=== PATIENT | female | born 1955 | race Caucasian/White ===

== ENCOUNTER 2017-07-09 18:54 | Emergency (ER) | payer BC ==
[2017-07-09 19:13] VITALS: BP 128/73; PULSE 94; TEMP 98.8; BMI 23.8
--- NOTE | 2017-07-09 19:32 | PDOC ---
History of Present Illness - General Chief Complaint: Injury Stated Complaint: INJURY Time Seen by Provider: 07/09/17 19:14 History Source: Patient Exam Limitations: No Limitations - History of Present Illness Initial Comments: 07/09/17 19:31 CHIEF COMPLAINT: Inversion injury right ankle HISTORY OF PRESENT ILLNESS: Patient is a 62-year-old female, history of hypertension, reports walking down the stairs, missed one step and sustained an inversion injury to right ankle. Now with swelling and pain to right lateral ankle Occurred: reports: just prior to arrival Severity: reports: moderate Pain Location: reports: lower extremity Method of Injury: Yes: fall Modifying Factors: improves with: None Loss of Consciousness: no loss of consciousness Associated Symptoms (Fall): denies symptoms Past History - Travel Traveled outside of the country in the last 30 days: No Close contact w/someone who was outside of country & ill: No - Past Medical History Allergies/Adverse Reactions: Allergies Allergy/AdvReac Type Severity Reaction Status Date / Time No Known Allergies Allergy Verified 07/09/17 19:09 Home Medications: Ambulatory Orders Ibuprofen [Motrin -] 400 mg PO TID PRN #20 tablet 02/25/16 Oxycodone HCl/Acetaminophen [Percocet 5-325 mg Tablet] 1 tab PO Q6H PRN #12 tablet MDD 4 07/09/17 COPD: No HTN: Yes - Suicide/Smoking/Psychosocial Hx Smoking History: Never smoked Have you smoked in the past 12 months: No Hx Alcohol Use: No Drug/Substance Use Hx: No Substance Use Type: None Review of Systems - Review of Systems Constitutional: No: Symptoms Reported Respiratory: No: Symptoms reported Cardiac (ROS): No: Symptoms Reported Musculoskeletal: Yes: Joint Pain, Joint Swelling. No: Muscle Pain, Muscle Weakness, Neck Pain, Joint Stiffness Integumentary: Yes: Other (edema to right lateral ankle). No: Symptoms Reported , Bruising, Erythema Neurological: No: Symptoms reported, Paresthesia, Tingling, Tremors All Other Systems: Reviewed and Negative *Physical Exam - Vital Signs Last Vital Signs Temp Pulse Resp BP Pulse Ox 98.8 F 94 H 19 128/73 97 07/09/17 19:10 07/09/17 19:10 07/09/17 19:10 07/09/17 19:10 07/09/17 19:10 - Physical Exam General Appearance: Yes: Appropriately Dressed. No: Apparent Distress Neck: negative: Tender lateral, Tender midline Respiratory/Chest: positive: Lungs Clear, Normal Breath Sounds. negative: Respiratory Distress, Accessory Muscle Use Cardiovascular: positive: Regular Rhythm, Regular Rate Lymphatic: negative: Adenopathy Extremity: positive: Swelling, Erythema, Inflammation Integumentary: positive: Erythema, Swelling. negative: Ecchymosis, Bruising Neurologic: positive: Alert, Normal Mood/Affect Procedures - Splinting Splint Location: Right: Ankle Pre-Proc Neuro Vasc Exam: normal Hand-Made Type: orthoglass Splint Type: Yes: Short Leg Post-Proc Neuro Vasc Exam: normal Grady Bandage: 3" Progress: 07/09/17 21:45 Crutches given for nonweightbearing status. ED Treatment Course - RADIOLOGY Radiology Studies Ordered: Category Date Time Status ANKLE & FOOT-RIGHT* [RAD] Stat Radiology 07/09/17 19:19 Ordered Medical Decision Making - Medical Decision Making 07/09/17 19:33 A/P: Patient with inversion injury to right ankle, and x-ray. 07/09/17 21:45 Wet read x-ray: Patient with right lateral malleolus fracture, short leg cast placed on, patient to follow-up with Dr. Curry. Nic for pain as needed. *DC/Admit/Observation/Transfer Diagnosis at time of Disposition: Lateral malleolar fracture Qualifiers: Encounter type: initial encounter Fracture type: closed Fracture alignment: nondisplaced Laterality: right Qualified Code(s): S82.64XA - Nondisplaced fracture of lateral malleolus of right fibula, initial encounter for closed fracture - Discharge Dispostion Disposition: HOME Condition at time of disposition: Stable Admit: No - Prescriptions Prescriptions: Oxycodone HCl/Acetaminophen [Percocet 5-325 mg Tablet] 1 tab PO Q6H PRN #12 tablet MDD 4 PRN Reason: Pain Level 6-10 - Referrals Referrals: Guanakito Foster MD [Primary Care Provider] - Jose Elias Curry MD [Staff Physician] - - Patient Instructions Printed Discharge Instructions: DI for Malleolar Fracture Additional Instructions: 1. Please return to the emergency department with any redness, swelling, increased pain, or any other concerns. 2. Keep splint on. 3. Please follow up in the office of Dr. Curry within a week. 4. No weightbearing 5. Ice and elevate when at rest. 6. Motrin for pain - Post Discharge Activity Forms/Work/School Notes: Back to Work
== END 2017-07-09 21:49 | disposition home or self-care (01) ==
LOC: JERFT 18:54
PROC: 2W3QX1Z Immobilization of Right Lower Leg using Splint (ICD-10-PCS; principal; 2017-07-09)
DX: S82.64XA Nondisplaced fracture of lateral malleolus of right fibula, initial encounter for closed fracture (principal); W10.8XXA Fall (on) (from) other stairs and steps, initial encounter; Y93.89 Activity, other specified; Y92.038 Other place in apartment as the place of occurrence of the external cause; Y99.8 Other external cause status
CPT/HCPCS: 73610-TC-RT-FY; 73630-TC-RT-FY; 99281-25

== ENCOUNTER 2018-10-18 06:35 | Day surgery (SDC) | payer BC ==
[2018-10-17 16:31] VITALS: BMI 24.7
[~2018-10-18 06:35] MED LIST: ACETAMINOPHEN 325 MG TABLET (FP) PO PRN; BSS (NA/CA/MG/K) BALANCED SALT SOLUTION OPHTH SOLN 15 ML BOTTLE OD ONE; CHONDROITIN SU A/HYALUR SOD 1 KIT IO ONE; CYCLOPENTOLATE HCL 1% OPHTH SOLN 2 ML BOTTLE OP SCH; EPINEPHrine/PF 1 MG/1 ML (1:1,000) AMPULE SQ ONE; KETOROLAC TROMETHAMINE 0.5% EYE DROP 1 DROP DROPS OP SCH; LIDOCAINE HCL 1% PRESERVATIVE FREE - 30ML VIAL IO ONE; OFLOXACIN 0.3% OPHTHALMIC SOLUTION 5 ML BOTTLE OP SCH; PHENYLEPHRINE 2.5% OPHTH SOLN 15 ML BOTTLE OP SCH; POVIDONE-IODINE 5% OPHTHALMIC PREP 30 ML SOLUTION OD ONE; TETRACAINE 0.5% OPHTH SOLN 2 ML BOTTLE OD ONE; TROPICAMIDE 1% OPHTH SOLN 15 ML BOTTLE OP SCH
[2018-10-18] MEDS ORDERED: PHENYLEPHRINE 2.5% OPHTH SOLN 15 ML BOTTLE ONE (06:50)
[2018-10-18] MEDS ORDERED: CYCLOPENTOLATE HCL 1% OPHTH SOLN 2 ML BOTTLE ONE (06:50)
[2018-10-18] MEDS ORDERED: OFLOXACIN 0.3% OPHTHALMIC SOLUTION 5 ML BOTTLE ONE (06:50)
[2018-10-18] MEDS ORDERED: KETOROLAC TROMETHAMINE 0.5% EYE DROP 1 DROP DROPS ONE (06:51)
[2018-10-18] MEDS ORDERED: TROPICAMIDE 1% OPHTH SOLN 15 ML BOTTLE ONE (06:51)
[2018-10-18] MEDS ORDERED: CYCLOPENTOLATE HCL 1% OPHTH SOLN 2 ML BOTTLE OD ONE ×3 (06:55→07:10)
[2018-10-18] MEDS ORDERED: PHENYLEPHRINE 2.5% OPHTH SOLN 15 ML BOTTLE OD ONE ×3 (06:55→07:10)
[2018-10-18] MEDS ORDERED: TROPICAMIDE 1% OPHTH SOLN 15 ML BOTTLE OD ONE ×3 (06:55→07:10)
[2018-10-18] MEDS ORDERED: OFLOXACIN 0.3% OPHTHALMIC SOLUTION 5 ML BOTTLE OD ONE ×3 (06:55→07:10)
[2018-10-18] MEDS ORDERED: KETOROLAC TROMETHAMINE 0.5% EYE DROP 1 DROP DROPS OD ONE ×3 (06:55→07:10)
[2018-10-18] MEDS ORDERED: EPINEPHrine/PF 1 MG/1 ML (1:1,000) AMPULE ONE (07:09)
[2018-10-18] MEDS ORDERED: POVIDONE-IODINE 5% OPHTHALMIC PREP 30 ML SOLUTION ONE (07:10)
[2018-10-18] MEDS ORDERED: CHONDROITIN SU A/HYALUR SOD 1 KIT ONE (07:10)
[2018-10-18] MEDS ORDERED: TETRACAINE 0.5% OPHTH SOLN 2 ML BOTTLE ONE (07:20)
[2018-10-18] MEDS ORDERED: LIDOCAINE HCL/PF 1% SDV 5ML VIAL ONE (07:20)
[2018-10-18] MEDS ORDERED: VANCOMYCIN 500 MG VIAL (RESTRICTED TO ID ONLY) ONE (07:20)
[2018-10-18] MEDS ORDERED: WATER FOR INJ,STERILE 10 ML ONE (07:21)
[2018-10-18] MEDS ORDERED: MIDAZOLAM HCL 2 MG/2 ML SINGLE DOSE VIAL ONE (08:03)
[2018-10-18] MEDS ORDERED: TETRACAINE 0.5% OPHTH SOLN 2 ML BOTTLE OD ONE (08:09)
[2018-10-18] MEDS ORDERED: POVIDONE-IODINE 5% OPHTHALMIC PREP 30 ML SOLUTION OD ONE (08:13)
[2018-10-18] MEDS ORDERED: CHONDROITIN SU A/HYALUR SOD 1 KIT IO ONE (08:19)
[2018-10-18] MEDS ORDERED: BSS (NA/CA/MG/K) BALANCED SALT SOLUTION OPHTH SOLN 15 ML BOTTLE OD ONE (08:19)
[2018-10-18] MEDS ORDERED: LIDOCAINE HCL 1% PRESERVATIVE FREE - 30ML VIAL IO ONE (08:19)
[2018-10-18] MEDS ORDERED: EPINEPHrine/PF 1 MG/1 ML (1:1,000) AMPULE SQ ONE (08:21)
--- NOTE | 2018-10-18 08:58 | SPEC ---
DATE OF OPERATION: 10/18/2018 PREOPERATIVE DIAGNOSIS: Cataract, right eye. POSTOPERATIVE DIAGNOSIS: Cataract, right eye. PROCEDURE: Phacoemulsification of right cataract with posterior chamber intraocular lens implantation. Lens used [id number], 22.5 diopter power, serial No. [id number]. SURGEON: Lizzie Goodwin M.D. ANESTHESIA: Topical MAC. COMPLICATIONS: None. DESCRIPTION OF PROCEDURE: The patient was brought to the operating room and correctly identified along with the operative site and the correct intraocular lens vital. The patient was then prepped and draped in the usual sterile fashion including 5% Betadine solution in the conjunctival sac and an eyelid drape. An eyelid speculum was then placed in the eye. A paracentesis port was created and approximately 0.5 mL of preservative free Lidocaine was then injected into the eye. Viscoelastic was then injected to inflate the anterior chamber. A temporal clear corneal wound was created. A continuous circular capsulorrhexis was performed. The nucleus was then hydrodissected with BSS and removed with phacoemulsification. The remaining cortical material was irrigated and aspirated. Viscoelastic was injected to inflate the capsular bag and the intraocular lens was then implanted into the capsular bag. The remaining Viscoelastic was irrigated and aspirated from the eye. The IOL was noted to be well centered and completely covered by the anterior capsulorrhexis. Topical vancomycin was placed and the eye patched and shielded. All wounds were tested and found to be watertight. No suture was placed. The eye was then shielded. The patient was then discharged from the operating room in stable condition. LIZZIE GOODWIN M.D. [id number]
[2018-10-18] MEDS ORDERED: ACETAMINOPHEN 325 MG TABLET (FP) ONE (09:38)
[2018-10-18] MEDS ORDERED: ACETAMINOPHEN 325 MG TABLET (FP) PO ONE (09:40)
[2018-10-18 11:21] VITALS: TEMP 97.7
[2018-10-18 11:45] VITALS: BP 95/55; PULSE 60
== END 2018-10-18 10:10 | disposition home or self-care (01) ==
LOC: JASU-SURG 06:35
PROVIDERS: ATTEND Ophthalmology
PROC: 08RJ3JZ Replacement of Right Lens with Synthetic Substitute, Percutaneous Approach (ICD-10-PCS; principal; 2018-10-18 08:00)
DX: H26.9 Unspecified cataract (principal)

== ENCOUNTER 2019-02-11 18:05 | Inpatient (IN) | payer BC ==
--- NOTE | 2019-02-11 19:41 | PDOC ---
History of Present Illness - General Chief Complaint: Lightheaded Stated Complaint: FEVER/DIZZINESS Time Seen by Provider: 02/11/19 19:39 History Source: Patient Exam Limitations: No Limitations - History of Present Illness Initial Comments: Pt is a 63 yo F, with PMH of HTN, who is presenting with fever, vomiting, and loose stool. Pt states she had subjective fever x2 days, with last dose of tylenol around 3 pm today. Pt also endorses nausea and vomiting, ~3 episodes since yesterday, and had 1 episode of loose brown stool in the ER. Pt denies any new/raw foods, no recent travel or known sick contacts. Pt endorses urinary burning about 2 weeks ago, which resolved after a few days. Pt denies any headache, vision changes, syncope, chest pain, palpitations, SOB, abdominal pain , urinary symptoms, flank pain, constipation, or leg swelling. Allergies: NKDA PCP: Kristin Social: Pt denies any cigarette, alcohol, or drug use. Pt denies any recent travel or sick contacts. Surgical: no relevant history. Family: no relevant history. 02/11/19 21:27 Past History - Travel Traveled outside of the country in the last 30 days: No Close contact w/someone who was outside of country & ill: No - Past Medical History Allergies/Adverse Reactions: Allergies Allergy/AdvReac Type Severity Reaction Status Date / Time No Known Allergies Allergy Verified 02/11/19 18:08 Home Medications: Ambulatory Orders Amlodipine Besylate [Norvasc -] 5 mg PO DAILY 10/17/18 Lisinopril 20 mg PO DAILY 10/17/18 Multivitamin [One-Daily Multi-Vitamin] 1 each PO DAILY 10/17/18 Anemia: No Asthma: No Cancer: Yes (SKIN - 2 REMOVED FROM FACE; 1 ON BACK) Cardiac Disorders: No CVA: No COPD: No CHF: No Dementia: No Diabetes: No GI Disorders: No Disorders: No HTN: Yes Hypercholesterolemia: No Liver Disease: No Seizures: No Thyroid Disease: No - Surgical History Abdominal Surgery: No Appendectomy: No Cardiac Surgery: No Cholecystectomy: No Lung Surgery: No Neurologic Surgery: No Orthopedic Surgery: No - Psycho Social/Smoking Cessation Hx Smoking History: Never smoked Have you smoked in the past 12 months: No Hx Alcohol Use: Yes (GLASS OF WINE - OCCASIONAL) Drug/Substance Use Hx: No Substance Use Type: Alcohol Hx Substance Use Treatment: No Review of Systems - Review of Systems Able to Perform ROS?: Yes Is the patient limited [place] Citizen proficient: No Constitutional: Yes: Chills, Fever, Loss of Appetite, Malaise, Weight Stable. No: Diaphoresis, Weakness HEENTM: No: Recent change in vision, Nose Congestion, Throat Pain, Throat Swelling, Difficulty Swallowing Respiratory: No: Cough, Orthopnea, Shortness of Breath Cardiac (ROS): No: Chest Pain, Edema, Irregular Heart Rate, Lightheadedness, Palpitations, Syncope, Chest Tightness ABD/GI: Yes: Diarrhea, Nausea, Poor Appetite, Poor Fluid Intake, Vomiting. No: Constipated, Abdominal cramping : No: Burning, Dysuria, Frequency, Flank Pain, Pain, Urgency Musculoskeletal: No: Back Pain, Joint Pain, Muscle Pain, Muscle Weakness Integumentary: No: Rash Neurological: No: Headache, Numbness, Weakness, Unsteady Gait, Dizziness Psychiatric: No: Sleep Pattern Change, Change in Appetite Endocrine: No: Increased Urine, Change in Weight Hematologic/Lymphatic: No: Anemia, Blood Clots, Easy Bleeding, Easy Bruising All Other Systems: Reviewed and Negative *Physical Exam - Vital Signs Last Vital Signs Temp Pulse Resp BP Pulse Ox 102.9 F H 125 H 18 115/53 L 99 02/11/19 18:06 02/11/19 18:06 02/11/19 18:06 02/11/19 18:06 02/11/19 18:06 - Physical Exam Comments: Pt febrile, tachycardic. Pt in NAD, ambulatory in ED on her own, normal body habitus. Pt alert and oriented x3. oral and maxillofacial surgery resident generally intact, muscular strength and sensation intact. No midline spinal tenderness, step-offs, or crepitus. Head normocephalic, atraumatic. Eyes PERRLA, EOMI. Oropharynx without erythema or exudates, no LAD b/l. No nasal congestion. Hearing intact. Clear heart sounds, S1/S2, no JVD, b/l pedal edema, or heart murmur. Clear lung sounds, no respiratory distress, wheezes, crackles, or accessory muscle use. No abdominal or CVA tenderness to palpation, no rebound, no guarding. Abdomen soft, non-distended, and with normoactive bowel sounds. Skin without jaundice or rash. 02/11/19 21:30 ED Treatment Course - LABORATORY CBC & Chemistry Diagram: 02/11/19 20:20 02/11/19 20:20 Medical Decision Making - Medical Decision Making Pt was seen at bedside, also will be seen by attending Dr. Browning. Pt presenting with nausea/vomiting and loose stool, fever x2 days, recent urinary symptoms, was given Macrobid x5 days from [facility]. Will evaluate with sepsis w/u for UTI vs influenza vs acute gastroenteritis. Pt with no cough/congestion or URI symptoms. Provided IV tylenol, 30 cc/kg NS IVF, 4 mg IV zofran for improvement of vomiting , dehydration, and fever. Will continue to reassess pt and monitor for symptomatic improvement. ECG: NSR, intervals WNL (HR 90, SC 138, QRS 94, QTc 398). No TWIs or significant ST segment changes. No significant changes from prior ECG (2015). 02/11/19 21:30 CBC WNL CMP: renal function WNL, elevated AST, ALT -- pts reveals pt taking extra strength tylenol x2 about every 4-6 hours. Will send tylenol level. Pt had reported taking 2 regular tylenol during earlier history. Transaminitis potentially from acute vomiting. Pharmacy reports pt took macrobid and azo. Vitals improving, HR in 80s. Paged hospitalist team for admission. Pt failed outpatient abx and has nitrite positive urine with limited PO intake due to vomiting. Requires hospitalization for inpatient abx and hydration. 02/11/19 21:53 Pt accepted to hospitalist team (Dr. Franks). Acetaminophen level pending. 02/11/19 22:28 Discharge - Discharge Information Problems reviewed: Yes Clinical Impression/Diagnosis: UTI (urinary tract infection) Qualifiers: Urinary tract infection type: acute cystitis Hematuria presence: with hematuria Qualified Code(s): N30.01 - Acute cystitis with hematuria Condition: Stable - Admission Yes - Follow up/Referral Referrals: Guanakito Foster MD [Primary Care Provider] - - Patient Discharge Instructions - Post Discharge Activity
[2019-02-11] MEDS ORDERED: SODIUM CHLORIDE 1,800 ML IV STA (19:50)
[2019-02-11] MEDS ORDERED: ACETAMINOPHEN 1000 MG/100 ML VIAL (NON FORMULARY) IVPB ONE (19:51)
[2019-02-11] MEDS ORDERED: ACETAMINOPHEN INJECTION 100 ML IVPB ONE (20:14)
[2019-02-11] MEDS ORDERED: ONDANSETRON 4 MG/2 ML VIAL IVPUSH ONE (20:16)
[2019-02-11] MEDS ORDERED: ONDANSETRON 4 MG/2 ML VIAL ONE (20:18)
[2019-02-11 20:46] LABS: BASO % 0.1 % (0-2.0); HEMATOCRIT 33.7 % (32.4-45.2); HEMOGLOBIN 11.6 GM/dL (10.7-15.3); LYMPH % 3.4 % (8-40); MCH 33.9 pg (25.7-33.7); MCHC 34.5 g/dl (32.0-36.0); MEAN CELL VOLUME 98.2 fl (80-96); MEAN PLT VOLUME 7.9 fl (7.5-11.1); MONO % 6.1 % (3.8-10.2); NEUT % 90.4 % (42.8-82.8); PLATELET COUNT 172 K/MM3 (134-434); RBC 3.43 M/mm3 (3.60-5.2); RDW 12.5 % (11.6-15.6); WHITE BLOOD COUNT 7.6 K/mm3 (4.0-10.0)
--- NOTE | 2019-02-11 20:51 | PDOC ---
Documentation entered by Betsey Montoya SCRIBE, acting as scribe for Joel Browning MD. Joel Browning MD: This documentation has been prepared by the miguelangelibe, Betsey Montoya SCRIBE, under my direction and personally reviewed by me in its entirety. I confirm that the documentation accurately reflects all work, treatment, procedures, and medical decision making performed by me. Attending Attestation - Resident Resident Name: Magalis Jacob - ED Attending Attestation I have performed the following: I have examined & evaluated the patient, The case was reviewed & discussed with the resident, I agree w/resident's findings & plan, Exceptions are as noted - HPI HPI: 02/11/19 20:51 63 F with h/o HTN presents to ED with fevers, N/V. Pt states that her symptoms began 3 days ago with chills. She subsequently developed a fever, which she has been taking tylenol for. Pt states that last night, she began to vomit. Denies any abdominal pain. Pt states that she also had an episode of diarrhea today while in the ED. Denies any dysuria/flank pain. Notes that she was tx'ed for a UTI 2 weeks ago and completed her course of abx. - Physicial Exam PE: 02/11/19 20:52 "GENERAL: Awake, alert, and fully oriented, in no acute distress. HEAD: No signs of trauma EYES: PERRLA, EOMI, sclera anicteric, conjunctiva clear ENT: Auricles normal inspection, hearing grossly normal, nares patent, oropharynx clear without exudates. Moist mucosa NECK: Nontender, no stepoffs, Normal ROM, supple, no lymphadenopathy, JVD, or masses LUNGS: Breath sounds equal, clear to auscultation bilaterally. No wheezes, and no crackles HEART: Regular rate and rhythm, normal S1 and S2, no murmurs, rubs or gallops ABDOMEN: Soft, nontender, normoactive bowel sounds. No guarding, no rebound. No masses EXTREMITIES: Normal range of motion, no edema. No clubbing or cyanosis. No cords, erythema, or tenderness NEUROLOGICAL: Cranial nerves II through XII intact. 5/5 strength and sensation in all extremities, Normal speech, normal gait, normal cerebellar function SKIN: Warm, Dry, normal turgor, no rashes or lesions noted. - Medical Decision Making 02/11/19 20:53 63 F with fevers, N/V. Suspect viral gastroenteritis vs flu. Pt febrile and tachycardic in ED but otherwise well appearing. - Labs, cultures - UA, CXR - Flu swab - IVF, tylenol
[2019-02-11 21:11] LABS: ALBUMIN 3.3 g/dl (3.4-5.0); BLOOD UREA NITROGEN 21.1 mg/dL (7-18); CALCIUM 8.7 mg/dL (8.5-10.1); CREATININE 0.9 mg/dL (0.55-1.3); EPI CELLS 0.9 /HPF (0-5/HPF); HYALINE CASTS 6 /lpf (0-8); POTASSIUM 3.5 mmol/L (3.5-5.1); TOT PROT 6.4 g/dl (6.4-8.2); URINE APPEARANCE CLOUDY; URINE BACTERIA 1002.7 /hpf (NEGATIVE); URINE BILIRUBIN 1+ (NEGATIVE); URINE COLOR DK YELLOW; URINE GLUCOSE (UA) NEGATIVE (NEGATIVE); URINE KETONE NEGATIVE (NEGATIVE); URINE LEUK ESTERASE 1+ (NEGATIVE); URINE NITRITE POSITIVE (NEGATIVE); URINE PROTEIN 1+ (NEGATIVE); URINE RBC 7 /hpf (0-4); URINE WBC 24 /hpf (0-5)
[2019-02-11] MEDS ORDERED: NITROFURANTOIN MACROCRYSTAL 50 MG CAPSULE (FP) PO SCH (21:30)
[2019-02-11] MEDS ORDERED: NITROFURANTOIN MACROCRYSTAL 50 MG CAPSULE (FP) ONE (21:34)
[2019-02-11] MEDS ORDERED: CEFTRIAXONE 1,000 MG in DEXTROSE 5%-WATER - 50 ML IVPB ONE (21:48)
[2019-02-11] MEDS ORDERED: CEFTRIAXONE 1 GM/50 ML BAG ONE (22:01)
[2019-02-11] MEDS ORDERED: DEXTROSE 5%-0.45% SALINE 1,000 ML IV SCH (22:30)
--- NOTE | 2019-02-11 22:39 | HP ---
Admitting History and Physical - Primary Care Physician PCP: Guanakito Foster - Admission Chief Complaint: Fever, Vomiting, Loose Stools History of Present Illness: This is a 63 y/o woman with a PMHx of HTN. Who presents to the ED with subjective fever 101 and chills x1 week, NBNB vomiting x today. Patient had 1 episode of brown loose stool while in the ED- now resolved. Patient reports being treated for UTI 2 weeks ago, unsure of name of medication, but reports completion. Medication was confirmed by ED resident- [place], verified by calling [facility]. Patient denies flank pain, frequency. Patient denies chills, US, dizziness, SOB, History Source: Patient, Family Member Limitations to Obtaining History: No Limitations - Past Medical History Cardiovascular: Yes: HTN - Past Surgical History Past Surgical History: Yes: Cataract Removal Additional Past Surgical History: Mohs - Smoking History Smoking history: Never smoked Have you smoked in the past 12 months: No - Alcohol/Substance Use Hx Alcohol Use: Yes (GLASS OF WINE - OCCASIONAL) History of Substance Use: reports: None - Social History Usual Living Arrangement: Yes: With Spouse Do you think of yourself as: Straight/Heterosexual ADL: Independent 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 History of Recent Travel: No Home Medications - Allergies Allergies/Adverse Reactions: Allergies Allergy/AdvReac Type Severity Reaction Status Date / Time No Known Allergies Allergy Verified 02/11/19 18:08 - Home Medications Home Medications: Ambulatory Orders Amlodipine Besylate [Norvasc -] 5 mg PO DAILY 10/17/18 Lisinopril 20 mg PO DAILY 10/17/18 Multivitamin [One-Daily Multi-Vitamin] 1 each PO DAILY 10/17/18 Family Medical History Family Hx Cancer: Mother (Osteosarcoma- ) Family Hx Renal Disease: Father (ESRD- ) Review of Systems - Review of Systems Constitutional: reports: Fever Eyes: reports: No Symptoms HENT: reports: No Symptoms Neck: reports: No Symptoms Cardiovascular: reports: No Symptoms Respiratory: reports: No Symptoms Gastrointestinal: reports: Diarrhea, Vomiting. denies: Melena, Rectal Bleeding , Vomiting Blood Genitourinary: reports: Dysuria Breasts: reports: No Symptoms Reported Musculoskeletal: reports: No Symptoms Integumentary: reports: No Symptoms Neurological: reports: No Symptoms Endocrine: reports: No Symptoms Hematology/Lymphatic: reports: No Symptoms Psychiatric: reports: No Symptoms Pain Intensity: 2 Physical Examination Vital Signs: Vital Signs Temperature 102.9 F H 02/11/19 18:06 Pulse Rate 125 H 02/11/19 18:06 Respiratory Rate 18 02/11/19 18:06 Blood Pressure 115/53 L 02/11/19 18:06 O2 Sat by Pulse Oximetry (%) 99 02/11/19 18:06 Constitutional: Yes: Well Nourished, No Distress, Calm Eyes: Yes: WNL, Conjunctiva Clear, EOM Intact, PERRL HENT: Yes: WNL, Atraumatic, Normocephalic Neck: Yes: WNL, Supple, Trachea Midline Cardiovascular: Yes: WNL, Regular Rate and Rhythm, S1, S2 Respiratory: Yes: WNL, Regular, CTA Bilaterally Gastrointestinal: Yes: WNL, Normal Bowel Sounds, Soft, Abdomen, Obese Renal/: Yes: WNL. No: CVA Tenderness - Left, CVA Tenderness - Right Breast(s): Yes: WNL Musculoskeletal: Yes: WNL Extremities: Yes: WNL Edema: No Peripheral Pulses WNL: Yes Integumentary: Yes: WNL Neurological: Yes: WNL, Alert, Oriented, Cran Nerves II-XII Intact ...Motor Strength: WNL Psychiatric: Yes: WNL, Alert, Oriented Labs: CBC, BMP 02/11/19 20:20 02/11/19 20:20 Laboratory Results - last 24 hr 02/11/19 02/11/19 02/11/19 20:20 20:20 20:20 WBC 7.6 RBC 3.43 L Hgb 11.6 Hct 33.7 D MCV 98.2 H MCH 33.9 H MCHC 34.5 RDW 12.5 Plt Count 172 D MPV 7.9 Absolute Neuts (auto) 6.8 Neutrophils % 90.4 H Lymphocytes % 3.4 L D Monocytes % 6.1 Eosinophils % 0.0 D Basophils % 0.1 Nucleated RBC % 0 Sodium 132 L Potassium 3.5 Chloride 101 Carbon Dioxide 25 Anion Gap 7 L BUN 21.1 H Creatinine 0.9 Est GFR (CKD-EPI)AfAm 79.98 Est GFR (CKD-EPI)NonAf 69.01 Random Glucose 116 H Lactic Acid 1.3 Calcium 8.7 Total Bilirubin 1.0 AST 172 H ALT 178 H Alkaline Phosphatase 188 H Creatine Kinase Troponin I Total Protein 6.4 Albumin 3.3 L Urine Color Urine Appearance Urine pH Ur Specific [place] Urine Protein Urine Glucose (UA) Urine Ketones Urine Blood Urine Nitrite Urine Bilirubin Urine Urobilinogen Ur Leukocyte Esterase Urine WBC (Auto) Urine RBC (Auto) Urine Casts (Auto) U Epithel Cells (Auto) Urine Bacteria (Auto) Influenza A (Rapid) Influenza B (Rapid) 02/11/19 02/11/19 02/11/19 20:20 20:20 20:20 WBC RBC Hgb Hct MCV MCH MCHC RDW Plt Count MPV Absolute Neuts (auto) Neutrophils % Lymphocytes % Monocytes % Eosinophils % Basophils % Nucleated RBC % Sodium Potassium Chloride Carbon Dioxide Anion Gap BUN Creatinine Est GFR (CKD-EPI)AfAm Est GFR (CKD-EPI)NonAf Random Glucose Lactic Acid Calcium Total Bilirubin AST ALT Alkaline Phosphatase Creatine Kinase 72 Troponin I 0.04 Total Protein Albumin Urine Color Dk yellow Urine Appearance Cloudy Urine pH 5.0 Ur Specific [place] 1.024 Urine Protein 1+ H Urine Glucose (UA) Negative Urine Ketones Negative Urine Blood Negative Urine Nitrite Positive H Urine Bilirubin 1+ H Urine Urobilinogen 1.0 Ur Leukocyte Esterase 1+ H Urine WBC (Auto) 24 Urine RBC (Auto) 7 Urine Casts (Auto) 6 U Epithel Cells (Auto) 0.9 Urine Bacteria (Auto) 1002.7 Influenza A (Rapid) Negative Influenza B (Rapid) Negative Intake & Output 02/08/19 02/09/19 02/10/19 02/11/19 23:59 23:59 23:59 23:59 Weight 61.235 kg Current Medications Generic Name Dose Route Start Last Admin Trade Name Freq PRN Reason Stop Dose Admin Amlodipine Besylate 5 mg 02/12/19 10:00 Norvasc - PO DAILY CLEM Heparin Sodium (Porcine) 5,000 unit 02/12/19 10:00 Heparin - SQ BID CLEM Dextrose/Sodium Chloride 1,000 mls @ 60 mls/hr 02/11/19 22:30 02/11/19 22:46 D5-1/2ns - IV 60 mls/hr ASDIR CLEM Administration Ceftriaxone Sodium 1 gm/ 50 mls @ 100 mls/hr 02/12/19 10:00 Dextrose IVPB DAILY [facility] Protocol Lisinopril 20 mg 02/12/19 10:00 Prinivil PO DAILY [facility] Multivitamins/Minerals/Vitamin C 1 tab 02/12/19 10:00 Tab-A-Vit - PO DAILY [facility] Nitrofurantoin Macrocrystals 100 mg 02/11/19 21:30 02/11/19 22:00 Macrodantin - PO Not Given ONCE CLEM Ondansetron HCl 4 mg 02/12/19 03:00 Zofran Injection IVPUSH Q6H PRN NAUSEA AND/OR VOMITING Imaging - Results Chest X-ray: Image Reviewed EKG: Image Reviewed Problem List - Problems (1) UTI (urinary tract infection) Assessment/Plan: Likely secondary to Failed Outpatient Therapy UA+ nitrates, +1 leukocyte esterase, 24 WBCs, 1002 Bacteria Urine Culture- pending No leukocytosis, +L- shift, Lactic Acid- nl Ceftriaxone started in ED, will continue On exam- neg CVA tenderness b/l, neg suprapubic tenderness No concern for Acute Pyelonephritis at this time Monitor CBC, BMP Monitor vitals Code(s): N39.0 - URINARY TRACT INFECTION, SITE NOT SPECIFIED Qualifiers: Urinary tract infection type: acute cystitis Hematuria presence: with hematuria Qualified Code(s): N30.01 - Acute cystitis with hematuria (2) Vomiting and diarrhea Assessment/Plan: Likely due to Gastroenteritis Continue gentle IVF Monitor CBC, BMP Clear Liquid Diet as tolerated Consider Stool Culture if Diarrhea continues Monitor vitals Code(s): R11.10 - VOMITING, UNSPECIFIED; R19.7 - DIARRHEA, UNSPECIFIED (3) Transaminitis Assessment/Plan: Likely secondary to medication use vs Hepatitis Per ED records, patient was taking Tylenol ES> 4gms daily for several days Acetaminophen Level 29.8 Trend LFTs Hepatitis A+B panel, Hep B Antigen, Hep C profile, Fe+ TIBC in am Avoid hepatotoxic drugs Code(s): R74.0 - NONSPEC ELEV OF LEVELS OF TRANSAMNS & LACTIC ACID DEHYDRGNSE (4) HTN (hypertension) Assessment/Plan: Stable Monitor BP Continue Norvasc, Lisinopril Monitor renal function Code(s): I10 - ESSENTIAL (PRIMARY) HYPERTENSION Assessment/Plan This is a 63 y/o woman with a PMHx of HTN. Admitted for UTI secondary to Failed Outpatient Therapy, Gastroenteritis, Transaminitis for further evaluation of their emergent condition. Plan: See Problem List FEN D51/2NS@60ml/hr Replete lytes prn Clear Low Na Diet ad main DVT ppx OOB SCDs Heparin SQ Code Status: Full Code Dispo: Requires Inpatient Care Visit type - Emergency Visit Emergency Visit: Yes ED Registration Date: 02/11/19 Care time: The patient presented to the Emergency Department on the above date and was hospitalized for further evaluation of their emergent condition. - New Patient This patient is new to me today: Yes Date on this admission: 02/11/19 - Critical Care Critical Care patient: No
[2019-02-12] MEDS ORDERED: IBUPROFEN 400 MG TABLET (FP) PO ONE ×3 (00:33→23:00)
[2019-02-12] MEDS ORDERED: ONDANSETRON 4 MG/2 ML VIAL IVPUSH PRN (03:00)
[2019-02-12 03:41] VITALS: BMI 25.9
[2019-02-12 08:12] LABS: BASO % 0.3 % (0-2.0); EOS % 0.3 % (0-4.5); HEMATOCRIT 32.3 % (32.4-45.2); MCHC 34.2 g/dl (32.0-36.0); MEAN CELL VOLUME 99.4 fl (80-96); MEAN PLT VOLUME 8.2 fl (7.5-11.1); NEUT % 86.4 % (42.8-82.8); PLATELET COUNT 164 K/MM3 (134-434); RBC 3.25 M/mm3 (3.60-5.2); RDW 12.8 % (11.6-15.6); WHITE BLOOD COUNT 5.5 K/mm3 (4.0-10.0)
[2019-02-12 08:33] LABS: BLOOD UREA NITROGEN 13.8 mg/dL (7-18); CALCIUM 8.5 mg/dL (8.5-10.1); CREATININE 0.6 mg/dL (0.55-1.3); POTASSIUM 4.2 mmol/L (3.5-5.1)
[2019-02-12] MEDS ORDERED: DEXTROSE 5%-WATER - 50 ML IVPB ONE (10:03)
[2019-02-12] MEDS ORDERED: cefTRIAXone SODIUM 1 GM VIAL ONE (10:03)
--- NOTE | 2019-02-12 10:04 | EKG ---
Test Reason : Blood Pressure : / mmHG Vent. Rate : 090 BPM Atrial Rate : 090 BPM P-R Int : 138 ms QRS Dur : 094 ms QT Int : 326 ms P-R-T Axes : 064 016 038 degrees QTc Int : 398 ms NORMAL SINUS RHYTHM NORMAL ECG WHEN COMPARED WITH ECG OF 25-FEB-2016 14:34, NO SIGNIFICANT CHANGE WAS FOUND Confirmed by KAI EARL MD ([id number]) on 02/12/2019 10:04:16 AM Referred By: Confirmed By:KAI EARL MD
[2019-02-12] MEDS: LISINOPRIL 20 MG TABLET (FP) PO SCH (10:14)
[2019-02-12] MEDS: HEPARIN NA (PORCINE) 5,000 UNITS/ML 1ML VIAL SQ SCH ×2 (10:14→23:07)
[2019-02-12] MEDS: amLODIPine BESYLATE 5 MG TABLET (FP) PO SCH (10:14)
[2019-02-12] MEDS: MULTIVITAMINS (DAILY MVI) TABLET (FP) PO SCH (10:14)
--- NOTE | 2019-02-12 14:51 | PN ---
Progress Note, Physician Chief Complaint: 63 y.o F well known from the office developed recurrent episodes of chills, fever, malaise 3-4 days [employer]. 1 day before the admission she developed vomiting and loose BM. She was treated with nitrofurantoin for UTI 2 -3 weeks [employer] for UTI. She also receives Amlodipine and Lisinopril for HTN. At [facility] the w/u showed Leuk est +1, many bacteria and Blood cultures were reported today positive for GNB. Her CMP also showed elevated LFT. Today AM she was not febrile, vomiting stopped and the patient was able to tolerate regular diet. History of Present Illness: HTN UTI's - Current Medication List Current Medications: Active Medications Amlodipine Besylate (Norvasc -) 5 mg PO DAILY [facility] Last Admin: 02/12/19 10:14 Dose: 5 mg Heparin Sodium (Porcine) (Heparin -) 5,000 unit SQ BID [facility] Last Admin: 02/12/19 10:14 Dose: 5,000 unit Ceftriaxone Sodium 1 gm/ (Dextrose) 50 mls @ 100 mls/hr IVPB DAILY [facility]; Protocol Potassium Chloride/Dextrose/Sod Cl (D5-1/2ns+10 Meq Kcl -) 10 meq in 1,000 mls @ 83 mls/hr IV ASDIR [facility] Lisinopril (Prinivil) 20 mg PO DAILY [facility] Last Admin: 02/12/19 10:14 Dose: 20 mg Multivitamins/Minerals/Vitamin C (Tab-A-Vit -) 1 tab PO DAILY [facility] Last Admin: 02/12/19 10:14 Dose: 1 tab Ondansetron HCl (Zofran Injection) 4 mg IVPUSH Q6H PRN PRN Reason: NAUSEA AND/OR VOMITING - Objective Vital Signs: Vital Signs Temperature 97.9 F 02/12/19 09:57 Pulse Rate 90 02/12/19 09:57 Respiratory Rate 20 02/12/19 09:57 Blood Pressure 113/59 L 02/12/19 09:57 O2 Sat by Pulse Oximetry (%) 97 02/12/19 03:43 Constitutional: Yes: Anxious, Mild Distress Eyes: Yes: Conjunctiva Clear, EOM Intact HENT: Yes: Atraumatic, Normocephalic Neck: Yes: Supple, Trachea Midline. No: Decreased ROM, Lymphadenopathy Cardiovascular: Yes: Regular Rate and Rhythm. No: Bradycardia, Tachycardia Respiratory: Yes: Regular, CTA Bilaterally. No: Accessory Muscle Use, Cough Gastrointestinal: Yes: Normal Bowel Sounds, Soft. No: Abdomen, Obese, Ascites ...Rectal Exam: Yes: Deferred Genitourinary: No: Anuria, Bladder Distention, CVA Tenderness - Left, CVA Tenderness - Right Breast(s): Yes: WNL Musculoskeletal: Yes: WNL Extremities: Yes: WNL Edema: No Peripheral Pulses WNL: No Integumentary: Yes: WNL Neurological: Yes: WNL ...Motor Strength: WNL Psychiatric: Yes: WNL Labs: CBC, BMP 02/12/19 07:20 02/12/19 07:20 - ....Imaging Chest X-ray: Report Reviewed EKG: Report Reviewed Problem List - Problems (1) HTN (hypertension) Assessment/Plan: Continue Lisinopril, Amlodipine Code(s): I10 - ESSENTIAL (PRIMARY) HYPERTENSION (2) Transaminitis Assessment/Plan: Likely due to acute febrile illness, and meds. US liver r/o GB stones Follow LFT Hepatitis studies -P Code(s): R74.0 - NONSPEC ELEV OF LEVELS OF TRANSAMNS & LACTIC ACID DEHYDRGNSE (3) Vomiting and diarrhea Assessment/Plan: Continue IV fluids When able to eat meals will change to heplock. Code(s): R11.10 - VOMITING, UNSPECIFIED; R19.7 - DIARRHEA, UNSPECIFIED (4) Septicemia Assessment/Plan: Follow the Blood cultures ID Continue Ceftriaxone IV for now and adjust as necessary. Kidneys US t0 r/o hydronephrosis, stones etc Code(s): A41.9 - SEPSIS, UNSPECIFIED ORGANISM
[2019-02-12] MEDS: CEFTRIAXONE 1 GM in DEXTROSE 5%-WATER - 50 ML IVPB SCH (16:58)
[2019-02-12] MEDS: D5-1/2NS+10 MEQ KCL - 10 MEQ/1,000 ML INFUS.BAG IV SCH (17:56)
[2019-02-13 09:25] LABS: ALBUMIN 2.9 g/dl (3.4-5.0); BILIRUBIN,TOTAL 0.4 mg/dL (0.2-1); BLOOD UREA NITROGEN 10.1 mg/dL (7-18); CALCIUM 8.9 mg/dL (8.5-10.1); CREATININE 0.6 mg/dL (0.55-1.3); POTASSIUM 3.9 mmol/L (3.5-5.1); TOT PROT 6.1 g/dl (6.4-8.2)
[2019-02-13] MEDS ORDERED: DEXTROSE 5%-WATER - 50 ML IVPB ONE (09:38)
[2019-02-13] MEDS ORDERED: cefTRIAXone SODIUM 1 GM VIAL ONE (09:38)
[2019-02-13] MEDS: amLODIPine BESYLATE 5 MG TABLET (FP) PO SCH (09:49)
[2019-02-13] MEDS: LISINOPRIL 20 MG TABLET (FP) PO SCH (09:49)
[2019-02-13] MEDS: MULTIVITAMINS (DAILY MVI) TABLET (FP) PO SCH (09:50)
[2019-02-13] MEDS: HEPARIN NA (PORCINE) 5,000 UNITS/ML 1ML VIAL SQ SCH ×2 (09:50→21:33)
--- NOTE | 2019-02-13 13:25 | PN ---
Progress Note, Physician Chief Complaint: Low grade fevers, sweats. Tmax 100.8F US LIVER, kidney -negative. History of Present Illness: HTN UTI's - Current Medication List Current Medications: Active Medications Amlodipine Besylate (Norvasc -) 5 mg PO DAILY [facility] Last Admin: 02/13/19 09:49 Dose: Not Given Heparin Sodium (Porcine) (Heparin -) 5,000 unit SQ BID [facility] Last Admin: 02/13/19 09:50 Dose: 5,000 unit Ceftriaxone Sodium 1 gm/ (Dextrose) 50 mls @ 100 mls/hr IVPB DAILY [facility]; Protocol Last Admin: 02/12/19 16:58 Dose: 100 mls/hr Potassium Chloride/Dextrose/Sod Cl (D5-1/2ns+10 Meq Kcl -) 10 meq in 1,000 mls @ 83 mls/hr IV ASDIR [facility] Last Admin: 02/12/19 17:56 Dose: 83 mls/hr Lisinopril (Prinivil) 20 mg PO DAILY [facility] Last Admin: 02/13/19 09:49 Dose: Not Given Multivitamins/Minerals/Vitamin C (Tab-A-Vit -) 1 tab PO DAILY [facility] Last Admin: 02/13/19 09:50 Dose: 1 tab Ondansetron HCl (Zofran Injection) 4 mg IVPUSH Q6H PRN PRN Reason: NAUSEA AND/OR VOMITING - Objective Vital Signs: Vital Signs Temperature 98.2 F 02/13/19 09:46 Pulse Rate 73 02/13/19 09:46 Respiratory Rate 20 02/13/19 09:46 Blood Pressure 108/62 02/13/19 09:46 O2 Sat by Pulse Oximetry (%) 95 02/12/19 21:00 Constitutional: Yes: No Distress, Anxious Eyes: Yes: Conjunctiva Clear, EOM Intact HENT: Yes: Atraumatic, Normocephalic Neck: Yes: Supple, Trachea Midline Cardiovascular: Yes: Regular Rate and Rhythm, S1, S2. No: JVD Respiratory: Yes: Regular, CTA Bilaterally Gastrointestinal: Yes: Normal Bowel Sounds, Soft. No: Abdomen, Obese ...Rectal Exam: Yes: Deferred Genitourinary: No: Anuria, Bladder Distention, CVA Tenderness - Left, CVA Tenderness - Right Breast(s): Yes: WNL Musculoskeletal: Yes: WNL Extremities: Yes: WNL Edema: No Peripheral Pulses WNL: Yes Integumentary: Yes: WNL Neurological: Yes: Alert, Oriented. No: Aphasia Labs: CBC, BMP 02/12/19 07:20 02/13/19 08:25 Problem List - Problems (1) HTN (hypertension) Assessment/Plan: Hold Lisinopril, Amlodipine BP remains low Code(s): I10 - ESSENTIAL (PRIMARY) HYPERTENSION (2) Transaminitis Assessment/Plan: Likely due to acute febrile illness, and meds. US liver r/o GB stones-neg Improving LFT Hepatitis studies -P Code(s): R74.0 - NONSPEC ELEV OF LEVELS OF TRANSAMNS & LACTIC ACID DEHYDRGNSE (3) Vomiting and diarrhea Assessment/Plan: Continue IV fluids N/V/D resolved Code(s): R11.10 - VOMITING, UNSPECIFIED; R19.7 - DIARRHEA, UNSPECIFIED (4) Septicemia Assessment/Plan: Follow the Blood cultures ID, Repeat blood cx. ID consult Continue Ceftriaxone IV . Kidneys US t0 r/o hydronephrosis, stones negative Code(s): A41.9 - SEPSIS, UNSPECIFIED ORGANISM
[2019-02-13] MEDS: CEFTRIAXONE 1 GM in DEXTROSE 5%-WATER - 50 ML IVPB SCH (14:12)
[2019-02-13] MEDS: D5-1/2NS+10 MEQ KCL - 10 MEQ/1,000 ML INFUS.BAG IV SCH (16:15)
[2019-02-13 19:07] LABS: HEP B CORE AB, TOT Negative (Negative)
[2019-02-13] MEDS ORDERED: FLU VACCINE QUAD 60 MCG/0.5 ML (MDV 19-20) IM ONE ×2 (19:56→20:45)
[2019-02-13] MEDS ORDERED: IBUPROFEN 400 MG TABLET (FP) PO ONE (21:54)
--- NOTE | 2019-02-13 21:55 | PN ---
Progress Note (short form) - Note Progress Note: ID CONSULT DICTATED GRAM NEGATIVE BACTEREMIA/SEPSIS UTI ? SEPSIS SECONDARY TO SOURCE AWAIT SEPSIS WORKUP CONTINUE EMPIRIC CEFTRIAXONE
[2019-02-14 02:07] LABS: FIBROSIS SCORE. 0.22 (0.00-0.21); HCV ALPHA 2 MACRO CHART 164 mg/dL (110-276); NECRO.INFLAM ACT.SCORE 0.63 (0.00-0.17); NECROINFLAM. ACTIVITY GRADE A3-Severe activity (.)
[2019-02-14] MEDS: D5-1/2NS+10 MEQ KCL - 10 MEQ/1,000 ML INFUS.BAG IV SCH ×2 (06:29→20:45)
--- NOTE | 2019-02-14 08:17 | PN ---
Progress Note, Physician Chief Complaint: Afebrile last 24 hrs. Preliminary C@S E.Coli S Ceftriaxone ID CONSULT Appreciated. History of Present Illness: HTN UTI's - Current Medication List Current Medications: Active Medications Amlodipine Besylate (Norvasc -) 5 mg PO DAILY [facility] Last Admin: 02/13/19 09:49 Dose: Not Given Heparin Sodium (Porcine) (Heparin -) 5,000 unit SQ BID [facility] Last Admin: 02/13/19 21:33 Dose: 5,000 unit Ceftriaxone Sodium 1 gm/ (Dextrose) 50 mls @ 100 mls/hr IVPB DAILY [facility]; Protocol Last Admin: 02/13/19 14:12 Dose: 100 mls/hr Potassium Chloride/Dextrose/Sod Cl (D5-1/2ns+10 Meq Kcl -) 10 meq in 1,000 mls @ 83 mls/hr IV ASDIR [facility] Last Admin: 02/14/19 06:29 Dose: 83 mls/hr Lisinopril (Prinivil) 20 mg PO DAILY [facility] Last Admin: 02/13/19 09:49 Dose: Not Given Multivitamins/Minerals/Vitamin C (Tab-A-Vit -) 1 tab PO DAILY [facility] Last Admin: 02/13/19 09:50 Dose: 1 tab Ondansetron HCl (Zofran Injection) 4 mg IVPUSH Q6H PRN PRN Reason: NAUSEA AND/OR VOMITING - Objective Vital Signs: Vital Signs Temperature 98.3 F 02/14/19 05:52 Pulse Rate 64 02/14/19 05:52 Respiratory Rate 20 02/14/19 05:52 Blood Pressure 145/75 02/14/19 05:52 O2 Sat by Pulse Oximetry (%) 98 02/13/19 21:00 Constitutional: Yes: No Distress Eyes: Yes: Conjunctiva Clear, EOM Intact HENT: Yes: Atraumatic, Normocephalic Neck: Yes: Supple, Trachea Midline Cardiovascular: Yes: Regular Rate and Rhythm. No: Bradycardia, Tachycardia Respiratory: Yes: Regular, CTA Bilaterally Gastrointestinal: Yes: Normal Bowel Sounds, Soft. No: Abdomen, Obese ...Rectal Exam: Yes: Deferred Genitourinary: No: Anuria, Bladder Distention, CVA Tenderness - Left, CVA Tenderness - Right Breast(s): Yes: WNL Musculoskeletal: Yes: WNL Extremities: Yes: WNL Edema: No Peripheral Pulses WNL: Yes Integumentary: Yes: WNL ...Motor Strength: WNL Psychiatric: Yes: WNL Labs: CBC, BMP 02/12/19 07:20 02/13/19 08:25 Problem List - Problems (1) HTN (hypertension) Assessment/Plan: Re-start Lisinopril, Amlodipine BP improved Code(s): I10 - ESSENTIAL (PRIMARY) HYPERTENSION (2) Transaminitis Assessment/Plan: Likely due to acute febrile illness, and meds. US liver r/o GB stones-neg Improving LFT Fibrosis score 0.22 necro-inflammatory score A3 Code(s): R74.0 - NONSPEC ELEV OF LEVELS OF TRANSAMNS & LACTIC ACID DEHYDRGNSE (3) Vomiting and diarrhea Assessment/Plan: Continue IV fluids N/V/D resolved Code(s): R11.10 - VOMITING, UNSPECIFIED; R19.7 - DIARRHEA, UNSPECIFIED (4) Septicemia Assessment/Plan: Follow the Blood cultures ID, Repeated blood cx-p. ID consult appreciated Continue Ceftriaxone IV . Kidneys US no hydronephrosis, stones . Code(s): A41.9 - SEPSIS, UNSPECIFIED ORGANISM
[2019-02-14 09:00] LABS: BASO % 0.7 % (0-2.0); EOS % 1.5 % (0-4.5); HEMATOCRIT 35.6 % (32.4-45.2); HEMOGLOBIN 12.2 GM/dL (10.7-15.3); LYMPH % 20.8 % (8-40); MCH 34.1 pg (25.7-33.7); MCHC 34.2 g/dl (32.0-36.0); MEAN CELL VOLUME 99.6 fl (80-96); MEAN PLT VOLUME 7.7 fl (7.5-11.1); MONO % 9.1 % (3.8-10.2); NEUT % 67.9 % (42.8-82.8); PLATELET COUNT 235 K/MM3 (134-434); RBC 3.57 M/mm3 (3.60-5.2); RDW 12.4 % (11.6-15.6); WHITE BLOOD COUNT 4.2 K/mm3 (4.0-10.0)
[2019-02-14 09:36] LABS: BILIRUBIN,TOTAL 0.2 mg/dL (0.2-1); BLOOD UREA NITROGEN 9.3 mg/dL (7-18); CALCIUM 9.2 mg/dL (8.5-10.1); CREATININE 0.6 mg/dL (0.55-1.3); POTASSIUM 4.3 mmol/L (3.5-5.1); TOT PROT 6.5 g/dl (6.4-8.2)
[2019-02-14] MEDS ORDERED: cefTRIAXone SODIUM 1 GM VIAL ONE (09:47)
[2019-02-14] MEDS ORDERED: DEXTROSE 5%-WATER - 50 ML IVPB ONE (09:48)
[2019-02-14] MEDS: HEPARIN NA (PORCINE) 5,000 UNITS/ML 1ML VIAL SQ SCH ×2 (09:49→21:56)
[2019-02-14] MEDS: amLODIPine BESYLATE 5 MG TABLET (FP) PO SCH (09:49)
[2019-02-14] MEDS: CEFTRIAXONE 1 GM in DEXTROSE 5%-WATER - 50 ML IVPB SCH (09:49)
[2019-02-14] MEDS: LISINOPRIL 20 MG TABLET (FP) PO SCH (09:49)
[2019-02-14] MEDS: MULTIVITAMINS (DAILY MVI) TABLET (FP) PO SCH (09:49)
--- NOTE | 2019-02-14 12:45 | CONS ---
INFECTIOUS DISEASE CONSULTATION DATE OF CONSULTATION: DATE OF DICTATION: 02/14/2019 HISTORY OF PRESENT ILLNESS: The patient is a 63-year-old female with a history of hypertension, evaluated for positive blood cultures. She was admitted to the hospital on February 11, 2019. She had been experiencing generalized malaise, fever and chills, for approximately 2-3 days prior to admission. On the day prior to admission, she developed high-grade fever associated with nausea, vomiting, and diarrhea. She had also complained of dysuria 1 or 2 weeks ago and had received a short course of Macrobid for a urinary tract infection. In the emergency room, she was noted to have a fever of 102.9. The patient was admitted to the hospital. Cultures were obtained. She was empirically treated with ceftriaxone. Blood and urine cultures are now positive for gram-negative rods. At the present time, she reports improvement in her general condition. She complains of generalized weakness and malaise. She denies any dysuria, hematuria, suprapubic or flank pain. PAST MEDICAL HISTORY: Positive for hypertension. ALLERGIES: No known allergies. MEDICATIONS: Norvasc, lisinopril. SOCIAL HISTORY: She resides at home in the community. Occasional EtOH. Negative tobacco use. SYSTEMS REVIEW: Neurologic: No loss of consciousness, seizure activity, focal weakness. Cardiac: Negative chest pain or palpitations. Respiratory: Negative cough or sputum production. Gastrointestinal: Negative vomiting or diarrhea. Genitourinary: As per HPI. LABORATORY DATA: White count 5.5, platelets 164. Creatinine 0.6. Total bilirubin 0.4, alkaline phosphatase 168, AST 42, ALT 93. Urinalysis: White cells 24. Ultrasound of the gallbladder and liver unremarkable. Chest x-ray negative. PHYSICAL EXAMINATION: General: On exam, she is awake and alert, supine in bed, in no acute distress. Vital Signs: Temperature 98.6, blood pressure 114/67, pulse 68 regular, respirations 20 per minute. Eyes: Sclerae are anicteric. Heart: Heart sounds S1, S2. Lungs: Clear. Abdomen: Soft. No right upper quadrant or suprapubic tenderness. Extremities: Negative for edema. IMPRESSION: 1. Gram-negative bacteremia/sepsis. 2. Urinary tract infection. Rule out sepsis, secondary to genitourinary focus. 3. Elevated liver enzymes. Likely secondary to gram-negative bacteremia. Await sepsis workup. Continue empiric ceftriaxone pending cultures. Further recommendations pending culture results and clinical course. Will follow. Thank you for the kind referral. KERI ESQUIVEL M.D. [id number]
--- NOTE | 2019-02-15 09:05 | PN ---
Progress Note (short form) - Note Progress Note: Afebrile Feels better. Vital Signs - 24 hr 02/14/19 02/14/19 02/14/19 15:00 18:00 21:00 Temperature 98.7 F 98.6 F Pulse Rate 68 84 Respiratory 20 20 Rate Blood Pressure 128/76 120/75 O2 Sat by Pulse 97 Oximetry (%) 02/15/19 02/15/19 00:00 06:00 Temperature 98.9 F 98.6 F Pulse Rate 75 62 Respiratory 18 18 Rate Blood Pressure 119/55 L 97/55 L O2 Sat by Pulse Oximetry (%) Lungs clear Heart S1S2 Regular Abdomen soft NT EXT No CCE Microbiology 02/13/19 14:31 Blood Culture - Preliminary Blood - Peripheral Venous NO GROWTH OBTAINED AFTER 24 HOURS, INCUBATION TO CONTINUE FOR 4 DAYS. 02/13/19 14:23 Blood Culture - Preliminary Blood - Peripheral Venous NO GROWTH OBTAINED AFTER 24 HOURS, INCUBATION TO CONTINUE FOR 4 DAYS. 02/11/19 20:20 Blood Culture - Final Blood - Peripheral Venous Escherichia Coli 02/11/19 20:20 Urine Culture - Final Urine - Urine Clean Catch Escherichia Coli 02/11/19 20:45 Blood Culture - Final Blood - Peripheral Venous Escherichia Coli Microbiology 02/13/19 14:31 Blood - Peripheral Venous Blood Culture - Preliminary NO GROWTH OBTAINED AFTER 24 HOURS, INCUBATION TO CONTINUE FOR 4 DAYS. 02/13/19 14:23 Blood - Peripheral Venous Blood Culture - Preliminary NO GROWTH OBTAINED AFTER 24 HOURS, INCUBATION TO CONTINUE FOR 4 DAYS. 02/11/19 20:20 Blood - Peripheral Venous Blood Culture - Final Escherichia Coli 02/11/19 20:20 Urine - Urine Clean Catch Urine Culture - Final Escherichia Coli 02/11/19 20:45 Blood - Peripheral Venous Blood Culture - Final Escherichia Coli Laboratory Results - last 24 hr 02/14/19 08:25 Sodium 140 Potassium 4.3 Chloride 108 H Carbon Dioxide 28 Anion Gap 4 L BUN 9.3 Creatinine 0.6 Est GFR (CKD-EPI)AfAm 114.02 Est GFR (CKD-EPI)NonAf 98.38 Random Glucose 111 H Calcium 9.2 Total Bilirubin 0.2 AST 42 H ALT 90 H Alkaline Phosphatase 204 H Total Protein 6.5 Albumin 3.0 L Current Active Problems Problem Status Onset HTN (hypertension) Acute Septicemia Acute Transaminitis Acute UTI (urinary tract infection) Acute Vomiting and diarrhea Acute Plan Continue IV Ceftriaxone next 24 hrs Follow bld cx IV to heplock D/C Lisinopril , Cont Amlo 5 mg Problem List - Problems (1) HTN (hypertension) Code(s): I10 - ESSENTIAL (PRIMARY) HYPERTENSION (2) Transaminitis Code(s): R74.0 - NONSPEC ELEV OF LEVELS OF TRANSAMNS & LACTIC ACID DEHYDRGNSE (3) Vomiting and diarrhea Code(s): R11.10 - VOMITING, UNSPECIFIED; R19.7 - DIARRHEA, UNSPECIFIED (4) Septicemia Code(s): A41.9 - SEPSIS, UNSPECIFIED ORGANISM
[2019-02-15 09:08] LABS: ALBUMIN 2.9 g/dl (3.4-5.0); BILIRUBIN,TOTAL 0.2 mg/dL (0.2-1); BLOOD UREA NITROGEN 10.8 mg/dL (7-18); CALCIUM 9.1 mg/dL (8.5-10.1); CREATININE 0.6 mg/dL (0.55-1.3); POTASSIUM 4.5 mmol/L (3.5-5.1); TOT PROT 6.3 g/dl (6.4-8.2)
[2019-02-15] MEDS ORDERED: DEXTROSE 5%-WATER - 50 ML IVPB ONE (11:52)
[2019-02-15] MEDS ORDERED: cefTRIAXone SODIUM 1 GM VIAL ONE (11:52)
[2019-02-15] MEDS: amLODIPine BESYLATE 5 MG TABLET (FP) PO SCH (12:02)
[2019-02-15] MEDS: HEPARIN NA (PORCINE) 5,000 UNITS/ML 1ML VIAL SQ SCH ×2 (12:02→22:29)
[2019-02-15] MEDS: MULTIVITAMINS (DAILY MVI) TABLET (FP) PO SCH (12:02)
[2019-02-15] MEDS: CEFTRIAXONE 1 GM in DEXTROSE 5%-WATER - 50 ML IVPB SCH (12:02)
--- NOTE | 2019-02-15 17:23 | PN ---
Progress Note, Physician History of Present Illness: AWAKE, ALERT SUPINE IN BED OFFERS NO COMPLAINTS DENIES ABDOMINAL PAIN, NAUSEA, DYSURIA NO C/O F/C - Current Medication List Current Medications: Active Medications Amlodipine Besylate (Norvasc -) 5 mg PO DAILY [facility] Last Admin: 02/15/19 12:02 Dose: 5 mg Heparin Sodium (Porcine) (Heparin -) 5,000 unit SQ BID [facility] Last Admin: 02/15/19 12:02 Dose: 5,000 unit Ceftriaxone Sodium 1 gm/ (Dextrose) 50 mls @ 100 mls/hr IVPB DAILY [facility]; Protocol Last Admin: 02/15/19 12:02 Dose: 100 mls/hr Multivitamins/Minerals/Vitamin C (Tab-A-Vit -) 1 tab PO DAILY [facility] Last Admin: 02/15/19 12:02 Dose: 1 tab Ondansetron HCl (Zofran Injection) 4 mg IVPUSH Q6H PRN PRN Reason: NAUSEA AND/OR VOMITING - Objective Vital Signs: Vital Signs Temperature 97.9 F 02/15/19 15:00 Pulse Rate 78 02/15/19 15:00 Respiratory Rate 20 02/15/19 15:00 Blood Pressure 132/70 02/15/19 15:00 O2 Sat by Pulse Oximetry (%) 97 02/14/19 21:00 Constitutional: Yes: No Distress Eyes: Yes: Conjunctiva Clear Cardiovascular: Yes: Regular Rate and Rhythm, S1, S2 Respiratory: Yes: CTA Bilaterally Gastrointestinal: Yes: Normal Bowel Sounds, Soft. No: Tenderness Labs: CBC, BMP 02/14/19 08:25 02/15/19 08:00 Assessment/Plan GRAM NEGATIVE BACTEREMIA/ SEPSIS ? ?GI ELEVATED LFTS ? SEPSIS PREDATED CEFTRIAXONE IF STABLE SUBSTITUTE PO LEVAQUIN NEXT 24HR. COMPLETE 2W COURSE ANTIBIOTICS TOTAL
[2019-02-16] MEDS ORDERED: cefTRIAXone SODIUM 1 GM VIAL ONE (09:13)
[2019-02-16] MEDS ORDERED: DEXTROSE 5%-WATER - 50 ML IVPB ONE (09:13)
--- NOTE | 2019-02-16 09:39 | PN ---
Progress Note (short form) - Note Progress Note: Awake, alert, NAD. Dr Bradford consult noted, recommended to switch to PO Levaquin and complete 2 weeks of antibiotics. rEPEATED BLOOD CULTURES ARE NEGATIVE TO DATE, Vital Signs (72 hours) 02/13/19 02/13/19 02/13/19 09:46 10:30 14:00 Temperature 98.2 F 98.6 F Pulse Rate 73 68 Respiratory 20 20 Rate Blood Pressure 108/62 114/67 O2 Sat by Pulse 95 Oximetry (%) 02/13/19 02/13/19 02/14/19 18:00 21:00 00:00 Temperature 98.6 F 98.8 F Pulse Rate 73 74 Respiratory 20 20 20 Rate Blood Pressure 131/75 125/67 O2 Sat by Pulse 98 Oximetry (%) 02/14/19 02/14/19 02/14/19 05:52 09:00 15:00 Temperature 98.3 F 99.1 F 98.7 F Pulse Rate 64 78 68 Respiratory 20 16 20 Rate Blood Pressure 145/75 131/73 128/76 O2 Sat by Pulse 99 Oximetry (%) 02/14/19 02/14/19 02/15/19 18:00 21:00 00:00 Temperature 98.6 F 98.9 F Pulse Rate 84 75 Respiratory 20 18 Rate Blood Pressure 120/75 119/55 L O2 Sat by Pulse 97 Oximetry (%) 02/15/19 02/15/19 02/15/19 06:00 09:05 10:00 Temperature 98.6 F 97.9 F Pulse Rate 62 79 Respiratory 18 20 Rate Blood Pressure 97/55 L 119/74 O2 Sat by Pulse 97 Oximetry (%) 02/15/19 02/15/19 02/15/19 15:00 18:00 21:00 Temperature 97.9 F 97.9 F Pulse Rate 78 69 Respiratory 20 20 18 Rate Blood Pressure 132/70 146/75 O2 Sat by Pulse 99 Oximetry (%) 02/15/19 02/16/19 02/16/19 22:00 00:00 06:00 Temperature 98.4 F 98.5 F 98.3 F Pulse Rate 73 72 65 Respiratory 18 20 20 Rate Blood Pressure 122/72 115/66 117/66 O2 Sat by Pulse Oximetry (%) lUNGS ARE CLEAR hEART s1s2 REGULAR aBDOMEN SOFT, Nt, nd eXT NO cce Microbiology 11/12/19 14:31 Blood - Peripheral Venous Blood Culture - Preliminary NO GROWTH OBTAINED AFTER 48 HOURS, INCUBATION TO CONTINUE FOR 3 DAYS. 02/13/19 14:23 Blood - Peripheral Venous Blood Culture - Preliminary NO GROWTH OBTAINED AFTER 48 HOURS, INCUBATION TO CONTINUE FOR 3 DAYS. Current Active Problems Problem Status Onset HTN (hypertension) Acute Septicemia Acute Transaminitis Acute UTI (urinary tract infection) Acute Vomiting and diarrhea Acute pLAN d/C HOME AFTER ABIOTICS TODAY lEVAQUIN 500 MG qd X9 DAYS f/U IN THE OFFICE NEXT WEEK. Problem List - Problems (1) HTN (hypertension) Code(s): I10 - ESSENTIAL (PRIMARY) HYPERTENSION (2) Transaminitis Code(s): R74.0 - NONSPEC ELEV OF LEVELS OF TRANSAMNS & LACTIC ACID DEHYDRGNSE (3) Vomiting and diarrhea Code(s): R11.10 - VOMITING, UNSPECIFIED; R19.7 - DIARRHEA, UNSPECIFIED (4) Septicemia Code(s): A41.9 - SEPSIS, UNSPECIFIED ORGANISM
--- NOTE | 2019-02-16 09:45 | DS ---
Physical Examination Vital Signs: Vital Signs Temperature 98.3 F 02/16/19 06:00 Pulse Rate 65 02/16/19 06:00 Respiratory Rate 20 02/16/19 06:00 Blood Pressure 117/66 02/16/19 06:00 O2 Sat by Pulse Oximetry (%) 99 02/15/19 21:00 Constitutional: Yes: No Distress, Calm Eyes: Yes: Conjunctiva Clear, EOM Intact HENT: Yes: Atraumatic, Normocephalic Neck: Yes: Supple, Trachea Midline Cardiovascular: Yes: Regular Rate and Rhythm, Other. No: Bradycardia, Tachycardia Respiratory: Yes: Regular Gastrointestinal: Yes: Normal Bowel Sounds, Soft. No: Abdomen, Obese ...Rectal Exam: Yes: Deferred Renal/: No: Anuria, Bladder Distention Breast(s): Yes: WNL Musculoskeletal: Yes: WNL Extremities: Yes: WNL Edema: No Peripheral Pulses WNL: Yes Integumentary: Yes: WNL Neurological: Yes: WNL ...Motor Strength: WNL Psychiatric: Yes: WNL Labs: CBC, BMP 02/14/19 08:25 02/15/19 08:00 Discharge Summary Problems reviewed: Yes Reason For Visit: URINARY TRACT INFECTION Current Active Problems HTN (hypertension) (Acute) Septicemia (Acute) Transaminitis (Acute) UTI (urinary tract infection) (Acute) Vomiting and diarrhea (Acute) Condition: Stable - Instructions Diet, Activity, Other Instructions: To whom it may concern: Josephine Dozier was hospitalized at [facility] from 02/11/2019 until 02/16/2019. The patient can return to work 02/19/2019 without restrictions Referrals: Guanakito Foster MD [Primary Care Provider] - Disposition: HOME - Home Medications Comprehensive Discharge Medication List: Ambulatory Orders Amlodipine Besylate [Norvasc -] 5 mg PO DAILY 10/17/18 Lisinopril 20 mg PO DAILY 10/17/18 Multivitamin [One-Daily Multi-Vitamin] 1 each PO DAILY 10/17/18
[2019-02-16] MEDS: CEFTRIAXONE 1 GM in DEXTROSE 5%-WATER - 50 ML IVPB SCH (10:15)
[2019-02-16] MEDS: HEPARIN NA (PORCINE) 5,000 UNITS/ML 1ML VIAL SQ SCH (10:15)
[2019-02-16] MEDS: MULTIVITAMINS (DAILY MVI) TABLET (FP) PO SCH (10:15)
[2019-02-16] MEDS: amLODIPine BESYLATE 5 MG TABLET (FP) PO SCH (10:15)
[2019-02-16 12:53] VITALS: BP 115/67; PULSE 78; TEMP 98.6
== END 2019-02-16 12:35 | disposition home or self-care (01) | DRG 872 ==
LOC: JER 18:05 → JERBED 21:45 → J5S 02-12 02:58
PROVIDERS: ADMIT Internal Medicine; ATTEND Internal Medicine
DX: A41.9 Sepsis, unspecified organism (principal); N39.0 Urinary tract infection, site not specified; R00.0 Tachycardia, unspecified; I10 Essential (primary) hypertension; R74.0 Nonspecific elevation of levels of transaminase and lactic acid dehydrogenase [LDH]; R11.10 Vomiting, unspecified; B96.20 Unspecified Escherichia coli [E. coli] as the cause of diseases classified elsewhere; E66.9 Obesity, unspecified; Z68.26 Body mass index [BMI] 26.0-26.9, adult; R19.7 Diarrhea, unspecified
CPT/HCPCS: 36415; 71046-TC-FY; 76700-TC; 80048; 80053; 80307; 81003; 82172; 82550; 82977; 83010; 83540; 83550; 83605; 83883; 84460; 84484; 85025; 86704; 86706; 86707; 86708; 86709; 87040; 87086; 87186; 87340; 87804; 93005; 93010; 99284-25; J0131; J1644; J7030; Q2036

== ENCOUNTER 2019-11-24 19:27 | Emergency (ER) | payer BC ==
[2019-11-24 19:47] VITALS: BP 132/75; PULSE 72; TEMP 97.7; BMI 27.0
[2019-11-24] MEDS ORDERED: ONDANSETRON *ODT* 4 MG TABLET SL ONE (19:49)
[2019-11-24] MEDS ORDERED: ACETAMINOPHEN 325 MG TABLET (FP) PO ONE (19:49)
[2019-11-24] MEDS ORDERED: DIPHTH,PERTUSS(ACELL),TET 0.5 ML DISP.SYRIN IM ONE ×2 (19:50→20:04)
[2019-11-24] MEDS ORDERED: ONDANSETRON *ODT* 4 MG TABLET ONE (20:04)
[2019-11-24] MEDS ORDERED: ACETAMINOPHEN 325 MG TABLET (FP) ONE (20:04)
--- NOTE | 2019-11-24 20:15 | PDOC ---
History of Present Illness - General Chief Complaint: Injury Stated Complaint: FALL HEAD INJURY Time Seen by Provider: 11/24/19 19:40 History Source: Patient Exam Limitations: No Limitations - History of Present Illness Initial Comments: Josephine Dozier is a 64 y F with a PMH of HTN, presents s/p mechanical fall. She report that she was getting into her shower, she slipped in the bath tub fell forward and hit her head against the faucet and she cut her L wrist and R.big toe against the corner of the metal covering. She denies any prodromal symptoms, nausea, vomiting, dizziness, headache, palpitations, chest pain, sweating. After she fell, No LOC, no memory loss, she was able to get back up immediately and call her . In ER, she reports a mild headache and na usea. no recent fever, chills, prior falls, No current AC use 11/24/19 20:09 11/24/19 20:23 Past History - Medical History Allergies/Adverse Reactions: Allergies Allergy/AdvReac Type Severity Reaction Status Date / Time No Known Allergies Allergy Verified 02/11/19 18:08 Home Medications: Ambulatory Orders Amlodipine Besylate [Norvasc -] 5 mg PO DAILY 10/17/18 Lisinopril 20 mg PO DAILY 10/17/18 Multivitamin [One-Daily Multi-Vitamin] 1 each PO DAILY 10/17/18 Levofloxacin [Levaquin] 500 mg PO DAILY #10 tablet 02/16/19 Cephalexin Monohydrate [Keflex -] 500 mg PO BID 3 Days #6 capsule 11/24/19 Anemia: No Asthma: No Cancer: Yes (SKIN - 2 REMOVED FROM FACE; 1 ON BACK) Cardiac Disorders: No CVA: No COPD: No CHF: No Dementia: No Diabetes: No GI Disorders: No Disorders: No HTN: Yes Hypercholesterolemia: No Liver Disease: No Seizures: No Thyroid Disease: No - Surgical History Abdominal Surgery: No Appendectomy: No Cardiac Surgery: No Cholecystectomy: No Lung Surgery: No Neurologic Surgery: No Orthopedic Surgery: No - Psycho-Social/Smoking History Smoking History: Never smoked Have you smoked in the past 12 months: No If you are a former smoker, when did you quit?: 40 years - Substance Abuse Hx (Audit-C & DAST Scrn) How often the patient has a drink containing alcohol: 2-4 times / month Number of drinks the patient has on a typical day: 1 or 2 How often the patient has six or more drinks on one occasion: Never Score: In Men: 4 or > Positive; In Women: 3 or > Positive: 2 Screen Result (Pos requires Nsg. Audit-10AR): Negative In the last yr the pt used illegal drug/Rx for NonMed reason: No Score: Yes response is considered Positive: 0 Screen Result (Positive result requires Nsg. DAST-10): Negative Review of Systems - Review of Systems Able to Perform ROS?: Yes Is the patient limited [place] proficient: No Constitutional: No: Chills, Fever, Weakness HEENTM: No: Blurred Vision, Nose Congestion, Difficulty Swallowing Respiratory: No: Cough, Shortness of Breath, Wheezing Cardiac (ROS): No: Chest Pain, Edema, Lightheadedness, Palpitations, Syncope, Chest Tightness ABD/GI: Yes: Nausea. No: Constipated, Diarrhea, Difficulty Swallowing, Vomiting, Abdominal cramping : No: Dysuria, Frequency, Flank Pain, Urgency Musculoskeletal: No: Back Pain Integumentary: Yes: Other (laceration of L. wrist and Right big toe (1st digit)) Neurological: No: Headache, Numbness, Paresthesia, Weakness, Unsteady Gait, Dizziness *Physical Exam - Vital Signs Last Vital Signs Temp Pulse Resp BP Pulse Ox 97.7 F 72 16 132/75 100 11/24/19 19:44 11/24/19 19:44 11/24/19 19:44 11/24/19 19:44 11/24/19 19:44 - Physical Exam General Appearance: No: Apparent Distress HEENT: positive: EOMI, IDA. negative: Nasal Congestion, Rhinorrhea Neck: positive: Supple. negative: Tender, Carotid bruit Respiratory/Chest: positive: Lungs Clear, Normal Breath Sounds. negative: Respi ratory Distress, Rales, Rhonchi, Wheezing Cardiovascular: positive: Regular Rhythm, Regular Rate, S1, S2, Murmur. negative: Edema, JVD Vascular Pulses: Carotid (R): 2+, Carotid (L): 2+, Dorsalis-Pedis (R): 1+, Doralis-Pedis (L): 1+ Gastrointestinal/Abdominal: positive: Soft. negative: Tender, Tenderness Musculoskeletal: positive: Normal Inspection. negative: CVA Tenderness Extremity: positive: Normal Capillary Refill. negative: Pedal Edema, Calf Tenderness Integumentary: positive: Normal Color, Other (L. wrist laceration + R. 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 #mechanical fall #head trauma #L.wrist laceration #Right leg 1st digit laceration - Periorbital pain/TTP : EOMI, Visual acuity: R, L - CT head - CT facial bones - Boostrix IM - Tylenol 650 mg PO - Zofran 4 mg IV Discharge - Discharge Information Problems reviewed: Yes Clinical Impression/Diagnosis: Fall Qualifiers: Encounter type: initial encounter Qualified Code(s): W19.XXXA - Unspecified fall, initial encounter Condition: Stable - Additional Discharge Information Prescriptions: Cephalexin Monohydrate [Keflex -] 500 mg PO BID 3 Days #6 capsule - Follow up/Referral - Patient Discharge Instructions Additional Instructions: You were seen today, 11/24/19, after an fall and head trauma and injury to Left wrist and right big toe. We cleaned your wounds and dressed them properly. In ER you reported a heachache and nausea. We did CT imaging of your head and face to evaluate for acute fractures(bone breakage) or acute bleeding inside your head. Imaging did not show any acute fractures or bleeding. We treated you with Boostrix IM vaccine, acetaminophen 650 mg and zofran 4mg. You are awake alert and oriented, you are clinically stable and able to go home. Please follow up with your primary care doctor within the next 72 hours Please return to ER or seek immediate medical care if you experience any of the following: - worsening headache - worsening nausea, vomiting - sudden loss of vision, balance, or loss of motor function/sensory functions - inability to walk - Post Discharge Activity
[2019-11-24] MEDS ORDERED: CEPHALEXIN MONOHYDRATE 500 MG CAPSULE (UD) PO ONE (21:39)
[2019-11-24] MEDS ORDERED: CEPHALEXIN MONOHYDRATE 500 MG CAPSULE (UD) ONE (21:45)
--- NOTE | 2019-11-24 22:35 | PDOC ---
Documentation entered by Hattie Mott SCRIBE, acting as scribe for Medina Stevens MD. Medina Stevens MD: This documentation has been prepared by the [employer] jovel Sydney, SCRIBE, under my direction and personally reviewed by me in its entirety. I confirm that the documentation accurately reflects all work, treatment, procedures, and medical decision making performed by me. Attending Attestation - Resident Resident Name: SrideviDebi - ED Attending Attestation I have performed the following: I have examined & evaluated the patient, The case was reviewed & discussed with the resident, I agree w/resident's findings & plan, Exceptions are as noted - HPI HPI: 11/24/19 20:50 Patient is a 64 female with a significant past medical history of HTN who presents to the ED s/p mechanical fall. As per patient, she was getting out of the shower when she slipped and fell forward, hitting her head on the faucet and sustaining injuries to her left wrist and right big toe. Patient reports she was able to get up immediately to call her and denies any loss of consciousness or memory loss. Patient presently endorses a headache and some nausea. Denies fever, chills, chest pain, vomiting, dizziness, palpitations, or urinary changes. Denies any recent falls. Allergies: NKDA PCP: Dr. Foster - Physicial Exam PE: 11/24/19 22:34 Agree with resident exam Pt has a small laceration to her right 1st toe which was dermabonded by us. Pt has normal HEENT heart and lungs normal abd soft NT ND - Medical Decision Making 11/25/19 20:[address] imaging normal Pt's toe laceration was dermabonded by us She is stable for d/c home Discharge - Discharge Information Problems reviewed: Yes Clinical Impression/Diagnosis: Fall Qualifiers: Encounter type: initial encounter Qualified Code(s): W19.XXXA - Unspecified fall, initial encounter Condition: Stable Disposition: HOME - Additional Discharge Information Prescriptions: Cephalexin Monohydrate [Keflex -] 500 mg PO BID 3 Days #6 capsule - Follow up/Referral - Patient Discharge Instructions Additional Instructions: You were seen today, 11/24/19, after an fall and head trauma and injury to Left wrist and right big toe. We cleaned your wounds and dressed them properly. In ER you reported a heachache and nausea. We did CT imaging of your head and face to evaluate for acute fractures(bone breakage) or acute bleeding inside your head. Imaging did not show any acute fractures or bleeding. We treated you with Boostrix IM vaccine, acetaminophen 650 mg and zofran 4mg. You are awake alert and oriented, you are clinically stable and able to go home. Please follow up with your primary care doctor within the next 72 hours Please return to ER or seek immediate medical care if you experience any of the following: - worsening headache - worsening nausea, vomiting - sudden loss of vision, balance, or loss of motor function/sensory functions - inability to walk - Post Discharge Activity
== END 2019-11-24 22:57 | disposition home or self-care (01) ==
LOC: JER 19:27
PROC: 3E0234Z Introduction of Serum, Toxoid and Vaccine into Muscle, Percutaneous Approach (ICD-10-PCS; principal; 2019-11-24)
DX: S09.90XA Unspecified injury of head, initial encounter (principal); S61.512A Laceration without foreign body of left wrist, initial encounter; S91.111A Laceration without foreign body of right great toe without damage to nail, initial encounter
CPT/HCPCS: 70450-TC; 70486-TC; 90715; 99284-25; Q0162